=== PATIENT | female | born 1975 | race Caucasian/White ===

== ENCOUNTER 2022-03-11 04:27 | Inpatient (IN) ==
[2022-03-11] MEDS ORDERED: SODIUM CHLORIDE 0.9% 1,000 ML IV STA (04:41)
[2022-03-11 05:09] LABS: Basophils # 0.1 10*3/uL (0.0-0.2); Basophils % 0.5 % (0.0-0.8); Eosinophils # 0.4 10*3/uL (0.0-0.87); Eosinophils % 1.6 % (0.00-10.9); Hematocrit 48.4 VOL% (35.7-47.0); Hemoglobin 14.5 GM/DL (12.0-16.0); Immature Granulocytes % 1.4 %; Immature Granulocytes Absolute 0.34 #; Lymphocytes # 9.4 10*3/uL (1.4-4.0); Lymphocytes % 39.2 % (21.3-54.2); Mean Corpuscular Volume 90.3 FL (87-102); Mean Platelet Volume 11.4 FL (9.6-12.0); Monocytes # 1.3 10*3/uL (0.11-0.8); Monocytes % 5.2 % (1.7-12.7); Neutrophils % 52.1 % (38.7-73.9); Platelet Count 417 T/CUMM (130-400); Red Blood Count 5.36 MC/CUMM (3.8-5.5); Red Cell Distribution Width 13.2 % (9.3-17.3); White Blood Count 24.1 T/CUMM (4-12)
[2022-03-11 05:16] LABS: PT Patient Result 11.5 SECS (10.5-12.0)
[2022-03-11] MEDS ORDERED: SODIUM BICARBONATE 50 MEQ/50 ML VIAL IV STA (05:23)
[2022-03-11] MEDS ORDERED: SODIUM BICARBONATE 50 MEQ/50 ML VIAL IV ONE ×2 (05:23→13:07)
[2022-03-11 05:25] LABS: Arterial Base Excess iSTAT -9 MMOL/L (-2.5-2.5); Arterial Bicarbonate iSTAT 24.4 MMOL/L (20-26); Arterial O2 Saturation iSTAT 93 % (95-100); Arterial PCO2 iSTAT 93 MM HG (35-48); Arterial PO2 iSTAT 99 MM HG (80-95); Arterial Total CO2 iSTAT 27 MMO/L (23-27); Arterial pH iSTAT 7.029 (7.35-7.45)
[2022-03-11] MEDS ORDERED: HEPARIN 5,000 UNIT/1 ML VIAL ONE (05:26)
[2022-03-11] MEDS ORDERED: HEPARIN 5,000 UNIT/1 ML VIAL IV STA (05:26)
[2022-03-11 05:30] LABS: Eosinophils 5 % (0-10); Lymphocytes 23 % (20-55); Platelet Estimate Increased; Total Cells Counted 100
[2022-03-11 05:31] LABS: Albumin 3.3 G/DL (3.4-5.0); Bilirubin,Total 0.4 MG/DL (0.20-1.00); Calcium 9.5 MG/DL (8.5-10.1); Osmolality,Calculated 293.8 MOS/KG (273-304); Potassium 4.3 MMOL/L (3.5-5.1); Total Protein 6.8 G/DL (6.4-8.2)
[2022-03-11] MEDS ORDERED: ETOMIDATE 20 MG/10 ML VIAL IV ONE (05:48)
[2022-03-11] MEDS ORDERED: ROCURONIUM 100 MG/10 ML VIAL IV ONE (05:48)
[2022-03-11 05:51] LABS: Bilirubin,Urine Negative (Negative); Blood, Urine Negative (Negative); Glucose,Urine (UA) 250 mg/dL (Negative); Hyaline Casts,Urine 3 /LPF (0-3); Ketones,Urine Negative (Negative); Nitrite,Urine Negative (Negative); Protein,Urine Negative (Negative); Squamous Epithelial Cell,Urine Occasional /HPF (0-10); Urine Appearance Clear (Clear); Urine Color Yellow (Yellow); Urine Specific Gravity 1.015 (1.001-1.035)
[2022-03-11 05:52] LABS: Urine Urobilinogen 0.2 eU/dL (<2.0)
[2022-03-11 06:08] LABS: Barbiturates Screen,Urine Negative (Negative); Benzodiazepines Screen,Urine Negative (Negative); Cannabinoid Screen,Urine Negative (Negative); Opiate Screen,Urine Negative (Negative); Phencyclidine Screen,Urine Negative (Negative)
[2022-03-11] MEDS ORDERED: MIDAZOLAM 2 MG/2 ML VIAL ONE (06:19)
[2022-03-11] MEDS ORDERED: HYDROmorphone 1 MG/1 ML SYRINGE ONE (06:19)
[2022-03-11] MEDS ORDERED: TIROFIBAN 5,000 MCG/100 ML PREMIX IV ONE (06:23)
[2022-03-11] MEDS ORDERED: HEPARIN/NACL 0.9% 2 UNITS/ML 1,000 UNIT/500 ML BAG IV ONE (06:29)
[2022-03-11] MEDS ORDERED: TIROFIBAN 5,000 MCG/100 ML PREMIX IV SCH (06:29)
[2022-03-11] MEDS ORDERED: TICAGRELOR 90 MG TABLET PO STA (07:13)
[2022-03-11] MEDS ORDERED: PROMETHAZINE 25 MG/1 ML VIAL IM PRN (08:02)
[2022-03-11] MEDS ORDERED: ONDANSETRON 4 MG/2 ML VIAL IV PRN (08:02)
[2022-03-11] MEDS ORDERED: MAGNESIUM SULF RIDER 2 GM/50 ML PREMIX IV PRN (08:10)
[2022-03-11] MEDS ORDERED: MAGNESIUM SULF RIDER 4 GM/100 ML PREMIX IV PRN (08:10)
[2022-03-11 09:17] LABS: Basophils # 0.1 10*3/uL (0.0-0.2); Basophils % 0.3 % (0.0-0.8); Hematocrit 44.8 VOL% (35.7-47.0); Hemoglobin 13.7 GM/DL (12.0-16.0); Lymphocytes # 2.2 10*3/uL (1.4-4.0); Lymphocytes % 7.8 % (21.3-54.2); Mean Corpuscular HGB Conc 30.6 GM/DL (32-36); Mean Corpuscular Volume 90.3 FL (87-102); Mean Platelet Volume 10.7 FL (9.6-12.0); Monocytes # 1.9 10*3/uL (0.11-0.8); Monocytes % 6.8 % (1.7-12.7); Neutrophils % 83.5 % (38.7-73.9); Platelet Count 376 T/CUMM (130-400); Red Blood Count 4.96 MC/CUMM (3.8-5.5); Red Cell Distribution Width 13.3 % (9.3-17.3); White Blood Count 27.7 T/CUMM (4-12)
[2022-03-11 09:27] LABS: Albumin 2.7 G/DL (3.4-5.0); Bilirubin,Total 0.6 MG/DL (0.20-1.00); Calcium 7.1 MG/DL (8.5-10.1); Potassium 3.6 MMOL/L (3.5-5.1); Total Protein 6.4 G/DL (6.4-8.2)
[2022-03-11 09:30] LABS: Band Neutrophils 3 % (0-10); Lymphocytes 11 % (20-55); Macrocytosis Slight; Metamyelocytes 1 %; Platelet Estimate Normal; Total Cells Counted 100
[2022-03-11] MEDS: LACTATED RINGERS 1,000 ML IV SCH ×4 (09:31→22:46)
[2022-03-11] MEDS: TICAGRELOR 90 MG TABLET PO SCH ×2 (09:32→21:27)
[2022-03-11] MEDS: ASPIRIN EC 81 MG TABLET PO SCH (09:32)
[2022-03-11 09:35] LABS: Arterial Base Excess iSTAT -2 MMOL/L (-2.5-2.5); Arterial Bicarbonate iSTAT 26.8 MMOL/L (20-26); Arterial O2 Saturation iSTAT 94 % (95-100); Arterial PCO2 iSTAT 60 MM HG (35-48); Arterial PO2 iSTAT 81 MM HG (80-95); Arterial Total CO2 iSTAT 29 MMO/L (23-27); Arterial pH iSTAT 7.259 (7.35-7.45)
[2022-03-11 09:53] LABS: CKMB % 8.18 %
[2022-03-11 10:03] LABS: High Sensitive Troponin I* 59924.1 ng/L (0-54)
[2022-03-11] MEDS ORDERED: LACTATED RINGERS 1,000 ML IV ONE (10:17)
[2022-03-11] MEDS: MIDAZOLAM 100 MG in SODIUM CHLORIDE 0.9% 80 ML IV PRN ×2 (10:40→23:10)
[2022-03-11] MEDS: cefTRIAXone 1,000 MG in SODIUM CHLORIDE 0.9% 100 ML IV SCH (11:12)
[2022-03-11] MEDS ORDERED: LACTATED RINGERS 500 ML IV ONE ×2 (11:25→21:05)
[2022-03-11 11:35] LABS: Risk Ratio 4.42
[2022-03-11] MEDS: AZITHROMYCIN INJ 500 MG in SODIUM CHLORIDE 0.9% 250 ML IV SCH (11:43)
[2022-03-11] MEDS: INSULIN REGULAR 100 UNIT/ML SUBCUT SCH ×3 (11:43→23:40)
[2022-03-11 11:56] LABS: Arterial Base Excess iSTAT -1 MMOL/L (-2.5-2.5); Arterial Bicarbonate iSTAT 26.3 MMOL/L (20-26); Arterial O2 Saturation iSTAT 95 % (95-100); Arterial PCO2 iSTAT 55 MM HG (35-48); Arterial PO2 iSTAT 85 MM HG (80-95); Arterial Total CO2 iSTAT 28 MMO/L (23-27); Arterial pH iSTAT 7.285 (7.35-7.45)
[2022-03-11 12:05] LABS: CKMB % 9.35 %
[2022-03-11 12:07] LABS: High Sensitive Troponin I* 112833.8 ng/L (0-54)
[2022-03-11 14:19] LABS: Basophils % 0.2 % (0.0-0.8); Eosinophils % 0.1 % (0.00-10.9); Hematocrit 39.1 VOL% (35.7-47.0); Hemoglobin 12.5 GM/DL (12.0-16.0); Immature Granulocytes % 0.7 %; Immature Granulocytes Absolute 0.13 #; Lymphocytes % 10.2 % (21.3-54.2); Mean Corpuscular Volume 84.8 FL (87-102); Mean Platelet Volume 10.6 FL (9.6-12.0); Monocytes # 1.3 10*3/uL (0.11-0.8); Monocytes % 6.6 % (1.7-12.7); Neutrophils % 82.2 % (38.7-73.9); Platelet Count 307 T/CUMM (130-400); Red Blood Count 4.61 MC/CUMM (3.8-5.5); Red Cell Distribution Width 13.4 % (9.3-17.3); White Blood Count 19.2 T/CUMM (4-12)
[2022-03-11 14:37] LABS: Albumin 2.4 G/DL (3.4-5.0); Bilirubin,Total 0.6 MG/DL (0.20-1.00); Calcium 7.9 MG/DL (8.5-10.1); Osmolality,Calculated 289.8 MOS/KG (273-304); Potassium 4.5 MMOL/L (3.5-5.1); Total Protein 5.9 G/DL (6.4-8.2)
[2022-03-11 14:50] LABS: CKMB % 8.83 %
[2022-03-11 14:52] LABS: High Sensitive Troponin I* 57679.2 ng/L (0-54)
[2022-03-11] MEDS: PANTOPRAZOLE 40 MG VIAL IV SCH (15:17)
[2022-03-11 15:24] LABS: Arterial Base Excess iSTAT 1 MMOL/L (-2.5-2.5); Arterial Bicarbonate iSTAT 26.8 MMOL/L (20-26); Arterial O2 Saturation iSTAT 92 % (95-100); Arterial PCO2 iSTAT 48 MM HG (35-48); Arterial PO2 iSTAT 69 MM HG (80-95); Arterial Total CO2 iSTAT 28 MMO/L (23-27); Arterial pH iSTAT 7.354 (7.35-7.45)
[2022-03-11] MEDS: DEXMEDETOMIDINE 200 MCG in SODIUM CHLORIDE 0.9% 48 ML IV PRN ×2 (19:15→23:38)
[2022-03-11] MEDS: ALBUTEROL/IPRATROPIUM 3 ML NEB RESP TX SCH (19:40)
[2022-03-11] MEDS: ROSUVASTATIN 20 MG TABLET PO SCH (21:27)
[2022-03-11] MEDS ORDERED: NOREPINEPHRINE 4 MG/4 ML VIAL IV ONE (21:45)
[2022-03-11] MEDS: NOREPINEPHRINE 8 MG in SODIUM CHLORIDE 0.9% 242 ML IV PRN (21:58)
[2022-03-12] MEDS: ALBUTEROL/IPRATROPIUM 3 ML NEB RESP TX SCH ×4 (00:42→19:25)
[2022-03-12] MEDS: DEXMEDETOMIDINE 400 MCG in SODIUM CHLORIDE 0.9% 96 ML IV PRN ×4 (03:40→22:48)
[2022-03-12 04:15] LABS: Arterial Base Excess iSTAT 3 MMOL/L (-2.5-2.5); Arterial Bicarbonate iSTAT 28.3 MMOL/L (20-26); Arterial O2 Saturation iSTAT 99 % (95-100); Arterial PCO2 iSTAT 43 MM HG (35-48); Arterial PO2 iSTAT 157 MM HG (80-95); Arterial Total CO2 iSTAT 30 MMO/L (23-27); Arterial pH iSTAT 7.428 (7.35-7.45)
[2022-03-12] MEDS: LACTATED RINGERS 1,000 ML IV SCH ×4 (04:58→22:49)
[2022-03-12] MEDS: INSULIN REGULAR 100 UNIT/ML SUBCUT SCH ×3 (05:27→18:35)
[2022-03-12] MEDS: ACETAMINOPHEN 325 MG TABLET PO PRN (05:28)
[2022-03-12 06:14] LABS: Basophils # 0.1 10*3/uL (0.0-0.2); Basophils % 0.2 % (0.0-0.8); Eosinophils % 0.1 % (0.00-10.9); Hematocrit 40.2 VOL% (35.7-47.0); Hemoglobin 12.7 GM/DL (12.0-16.0); Immature Granulocytes % 0.5 %; Immature Granulocytes Absolute 0.11 #; Lymphocytes # 4.3 10*3/uL (1.4-4.0); Mean Corpuscular HGB Conc 31.6 GM/DL (32-36); Mean Corpuscular Volume 84.6 FL (87-102); Mean Platelet Volume 10.7 FL (9.6-12.0); Monocytes # 1.8 10*3/uL (0.11-0.8); Monocytes % 8.1 % (1.7-12.7); Neutrophils % 72.1 % (38.7-73.9); Platelet Count 364 T/CUMM (130-400); Red Blood Count 4.75 MC/CUMM (3.8-5.5); Red Cell Distribution Width 13.2 % (9.3-17.3); White Blood Count 22.6 T/CUMM (4-12)
[2022-03-12 06:38] LABS: Albumin 2.7 G/DL (3.4-5.0); Bilirubin,Total 0.8 MG/DL (0.20-1.00); Calcium 8.4 MG/DL (8.5-10.1); Osmolality,Calculated 288.1 MOS/KG (273-304); Potassium 3.8 MMOL/L (3.5-5.1); Total Protein 6.3 G/DL (6.4-8.2)
[2022-03-12] MEDS: POTASSIUM CHLORIDE 20 MEQ TABLET PO PRN (08:25)
[2022-03-12 08:39] LABS: Anisocytosis Slight; Lymphocytes 23 % (20-55); Platelet Estimate Normal; Total Cells Counted 100
[2022-03-12] MEDS: MIDAZOLAM 100 MG in SODIUM CHLORIDE 0.9% 80 ML IV PRN (09:00)
[2022-03-12] MEDS: NOREPINEPHRINE 8 MG in SODIUM CHLORIDE 0.9% 242 ML IV PRN (09:00)
[2022-03-12] MEDS: MULTIVITAMIN (CENTRUM) TABLET PO SCH (09:38)
[2022-03-12] MEDS: TICAGRELOR 90 MG TABLET PO SCH ×2 (09:38→20:55)
[2022-03-12] MEDS: ASPIRIN EC 81 MG TABLET PO SCH (09:38)
[2022-03-12] MEDS: PANTOPRAZOLE 40 MG VIAL IV SCH (09:39)
[2022-03-12] MEDS: ESTRADIOL 1 MG TABLET PO SCH (09:39)
[2022-03-12] MEDS: INSULIN GLARGINE 100 UNIT/ML SUBCUT SCH (10:03)
[2022-03-12] MEDS ORDERED: LACTATED RINGERS 500 ML IV ONE (10:45)
[2022-03-12] MEDS: cefTRIAXone 1,000 MG in SODIUM CHLORIDE 0.9% 100 ML IV SCH (11:34)
[2022-03-12] MEDS: AZITHROMYCIN INJ 500 MG in SODIUM CHLORIDE 0.9% 250 ML IV SCH (13:36)
[2022-03-12] MEDS: MEROPENEM 500 MG in SODIUM CHLORIDE 0.9% 100 ML IV SCH ×2 (13:36→18:35)
[2022-03-12 15:30] LABS: Amorphous Crystals,Urine Occasional /HPF (Few); Bacteria,Urine Occasional /HPF (Few); Bilirubin,Urine Negative (Negative); Blood, Urine Negative (Negative); Glucose,Urine (UA) Negative (Negative); Ketones,Urine Negative (Negative); Mucus,Urine Occasional /LPF (Occasional); Nitrite,Urine Negative (Negative); Protein,Urine 30 mg/dL (Negative); Squamous Epithelial Cell,Urine Occasional /HPF (0-10); Urine Appearance Slightly Cloudy (Clear); Urine Color Yellow (Yellow); Urine Urobilinogen 0.2 eU/dL (<2.0); Urine pH 8.5 (4.5-8.0)
[2022-03-12] MEDS: VANCOMYCIN INJ 1,500 MG in SODIUM CHLORIDE 0.9% 500 ML IV SCH (16:42)
[2022-03-12] MEDS: ROSUVASTATIN 20 MG TABLET PO SCH (20:55)
[2022-03-13] MEDS: ALBUTEROL/IPRATROPIUM 3 ML NEB RESP TX SCH ×4 (00:14→19:21)
[2022-03-13] MEDS: INSULIN REGULAR 100 UNIT/ML SUBCUT SCH ×4 (00:54→17:58)
[2022-03-13] MEDS: MEROPENEM 500 MG in SODIUM CHLORIDE 0.9% 100 ML IV SCH ×4 (00:55→18:15)
[2022-03-13] MEDS: VANCOMYCIN INJ 1,500 MG in SODIUM CHLORIDE 0.9% 500 ML IV SCH ×2 (01:28→13:59)
[2022-03-13] MEDS: NOREPINEPHRINE 8 MG in SODIUM CHLORIDE 0.9% 242 ML IV PRN (02:44)
[2022-03-13 04:04] LABS: ABG Base Excess 1.5 MMOL/L (-2.5-2.5); ABG HCO3 25.7 MMOL/L (20-26); ABG Oxygen Saturation 97.3 % (95-100); ABG PCO2 33.9 MM HG (35-48); ABG PH 7.469 (7.35-7.45); ABG PO2 98.6 MM HG (80-95); ABG TCO2 21.4 MMOL/L (23-27)
[2022-03-13 04:19] LABS: Basophils % 0.2 % (0.0-0.8); Eosinophils # 0.1 10*3/uL (0.0-0.87); Eosinophils % 0.7 % (0.00-10.9); Hematocrit 36.7 VOL% (35.7-47.0); Hemoglobin 11.7 GM/DL (12.0-16.0); Immature Granulocytes % 0.5 %; Immature Granulocytes Absolute 0.08 #; Lymphocytes # 4.1 10*3/uL (1.4-4.0); Lymphocytes % 23.8 % (21.3-54.2); Mean Corpuscular HGB Conc 31.9 GM/DL (32-36); Mean Corpuscular Volume 85.2 FL (87-102); Mean Platelet Volume 10.6 FL (9.6-12.0); Monocytes # 1.2 10*3/uL (0.11-0.8); Monocytes % 7.1 % (1.7-12.7); Neutrophils % 67.7 % (38.7-73.9); Platelet Count 252 T/CUMM (130-400); Red Blood Count 4.31 MC/CUMM (3.8-5.5); Red Cell Distribution Width 13.2 % (9.3-17.3); White Blood Count 17.1 T/CUMM (4-12)
[2022-03-13 04:38] LABS: Calcium 8.4 MG/DL (8.5-10.1); Osmolality,Calculated 281.4 MOS/KG (273-304); Phosphorous 2.2 MG/DL (2.5-4.9); Potassium 3.6 MMOL/L (3.5-5.1)
[2022-03-13 04:50] LABS: Albumin 2.4 G/DL (3.4-5.0); Bilirubin,Total 1.1 MG/DL (0.20-1.00); Osmolality,Calculated 283.3 MOS/KG (273-304); Potassium 4.1 MMOL/L (3.5-5.1); Total Protein 5.2 G/DL (6.4-8.2)
[2022-03-13] MEDS: DEXMEDETOMIDINE 400 MCG in SODIUM CHLORIDE 0.9% 96 ML IV PRN ×3 (04:50→17:32)
[2022-03-13] MEDS: LACTATED RINGERS 1,000 ML IV SCH ×4 (05:27→22:02)
[2022-03-13] MEDS: ACETAMINOPHEN 325 MG TABLET PO PRN (05:29)
[2022-03-13] MEDS: PANTOPRAZOLE 40 MG VIAL IV SCH (08:42)
[2022-03-13] MEDS: ASPIRIN EC 81 MG TABLET PO SCH (08:42)
[2022-03-13] MEDS: MULTIVITAMIN (CENTRUM) TABLET PO SCH (08:42)
[2022-03-13] MEDS: ESTRADIOL 1 MG TABLET PO SCH (08:42)
[2022-03-13] MEDS: TICAGRELOR 90 MG TABLET PO SCH ×2 (08:42→20:43)
[2022-03-13] MEDS: INSULIN GLARGINE 100 UNIT/ML SUBCUT SCH (08:43)
[2022-03-13] MEDS ORDERED: NOREPINEPHRINE 8 MG in SODIUM CHLORIDE 0.9% 242 ML IV PRN (09:34)
[2022-03-13] MEDS: MIDAZOLAM 100 MG in SODIUM CHLORIDE 0.9% 80 ML IV PRN (11:18)
[2022-03-13] MEDS: AZITHROMYCIN INJ 500 MG in SODIUM CHLORIDE 0.9% 250 ML IV SCH (12:19)
[2022-03-13] MEDS: ROSUVASTATIN 20 MG TABLET PO SCH (20:43)
[2022-03-14] MEDS: ALBUTEROL/IPRATROPIUM 3 ML NEB RESP TX SCH ×4 (00:18→20:15)
[2022-03-14] MEDS: NOREPINEPHRINE 8 MG in SODIUM CHLORIDE 0.9% 242 ML IV PRN (00:50)
[2022-03-14] MEDS: MEROPENEM 500 MG in SODIUM CHLORIDE 0.9% 100 ML IV SCH ×4 (00:53→19:21)
[2022-03-14] MEDS: INSULIN REGULAR 100 UNIT/ML SUBCUT SCH ×4 (00:58→19:20)
[2022-03-14] MEDS: VANCOMYCIN INJ 1,500 MG in SODIUM CHLORIDE 0.9% 500 ML IV SCH (03:00)
[2022-03-14 04:51] LABS: Arterial Base Excess iSTAT 0 MMOL/L (-2.5-2.5); Arterial Bicarbonate iSTAT 23.1 MMOL/L (20-26); Arterial O2 Saturation iSTAT 99 % (95-100); Arterial PCO2 iSTAT 31 MM HG (35-48); Arterial PO2 iSTAT 149 MM HG (80-95); Arterial Total CO2 iSTAT 24 MMO/L (23-27); Arterial pH iSTAT 7.488 (7.35-7.45)
[2022-03-14] MEDS: DEXMEDETOMIDINE 400 MCG in SODIUM CHLORIDE 0.9% 96 ML IV PRN ×5 (05:09→20:50)
[2022-03-14] MEDS: LACTATED RINGERS 1,000 ML IV SCH ×3 (06:21→16:28)
[2022-03-14 06:25] LABS: Basophils % 0.3 % (0.0-0.8); Eosinophils # 0.2 10*3/uL (0.0-0.87); Eosinophils % 1.4 % (0.00-10.9); Hematocrit 36.1 VOL% (35.7-47.0); Hemoglobin 11.1 GM/DL (12.0-16.0); Immature Granulocytes % 0.4 %; Immature Granulocytes Absolute 0.05 #; Lymphocytes # 2.9 10*3/uL (1.4-4.0); Lymphocytes % 24.9 % (21.3-54.2); Mean Corpuscular HGB Conc 30.7 GM/DL (32-36); Mean Corpuscular Volume 87.4 FL (87-102); Monocytes # 0.7 10*3/uL (0.11-0.8); Monocytes % 6.2 % (1.7-12.7); Neutrophils % 66.8 % (38.7-73.9); Platelet Count 217 T/CUMM (130-400); Red Blood Count 4.13 MC/CUMM (3.8-5.5); Red Cell Distribution Width 13.2 % (9.3-17.3); White Blood Count 11.7 T/CUMM (4-12)
[2022-03-14 07:21] LABS: Albumin 1.9 G/DL (3.4-5.0); Bilirubin,Total 1.1 MG/DL (0.20-1.00); Calcium 8.2 MG/DL (8.5-10.1); Total Protein 5.4 G/DL (6.4-8.2)
[2022-03-14 07:26] LABS: Osmolality,Calculated 282.3 MOS/KG (273-304); Potassium 3.9 MMOL/L (3.5-5.1)
[2022-03-14] MEDS: ASPIRIN CHEW 81 MG TABLET PO SCH (09:22)
[2022-03-14] MEDS: ESTRADIOL 1 MG TABLET PO SCH (09:22)
[2022-03-14] MEDS: MULTIVITAMIN (CENTRUM) TABLET PO SCH (09:23)
[2022-03-14] MEDS: PANTOPRAZOLE 40 MG VIAL IV SCH (09:25)
[2022-03-14] MEDS: INSULIN GLARGINE 100 UNIT/ML SUBCUT SCH (09:25)
[2022-03-14] MEDS: TICAGRELOR 90 MG TABLET PO SCH ×2 (09:26→21:19)
[2022-03-14] MEDS ORDERED: MAGNESIUM SULF RIDER 2 GM/50 ML PREMIX IV ONE (09:36)
[2022-03-14 09:52] LABS: Arterial Base Excess iSTAT -2 MMOL/L (-2.5-2.5); Arterial Bicarbonate iSTAT 22.8 MMOL/L (20-26); Arterial O2 Saturation iSTAT 96 % (95-100); Arterial PCO2 iSTAT 38 MM HG (35-48); Arterial PO2 iSTAT 84 MM HG (80-95); Arterial Total CO2 iSTAT 24 MMO/L (23-27); Arterial pH iSTAT 7.384 (7.35-7.45)
[2022-03-14] MEDS: MIDAZOLAM 100 MG in SODIUM CHLORIDE 0.9% 80 ML IV PRN (16:59)
[2022-03-14] MEDS: ROSUVASTATIN 20 MG TABLET PO SCH (21:19)
[2022-03-15] MEDS: INSULIN REGULAR 100 UNIT/ML SUBCUT SCH ×4 (00:17→17:00)
[2022-03-15] MEDS: MEROPENEM 500 MG in SODIUM CHLORIDE 0.9% 100 ML IV SCH ×4 (00:31→17:33)
[2022-03-15] MEDS: LACTATED RINGERS 1,000 ML IV SCH ×3 (01:22→06:55)
[2022-03-15] MEDS: ALBUTEROL/IPRATROPIUM 3 ML NEB RESP TX SCH ×4 (01:53→19:00)
[2022-03-15 03:09] LABS: Arterial Base Excess iSTAT 0 MMOL/L (-2.5-2.5); Arterial O2 Saturation iSTAT 96 % (95-100); Arterial PCO2 iSTAT 36 MM HG (35-48); Arterial PO2 iSTAT 81 MM HG (80-95); Arterial Total CO2 iSTAT 25 MMO/L (23-27); Arterial pH iSTAT 7.428 (7.35-7.45)
[2022-03-15] MEDS: MIDAZOLAM 100 MG in SODIUM CHLORIDE 0.9% 80 ML IV PRN ×2 (03:50→15:20)
[2022-03-15 04:03] LABS: Basophils % 0.2 % (0.0-0.8); Eosinophils # 0.2 10*3/uL (0.0-0.87); Eosinophils % 2.1 % (0.00-10.9); Hematocrit 34.8 VOL% (35.7-47.0); Hemoglobin 10.9 GM/DL (12.0-16.0); Immature Granulocytes % 0.4 %; Immature Granulocytes Absolute 0.05 #; Lymphocytes # 2.5 10*3/uL (1.4-4.0); Lymphocytes % 21.9 % (21.3-54.2); Mean Corpuscular HGB Conc 31.3 GM/DL (32-36); Mean Corpuscular Volume 85.9 FL (87-102); Mean Platelet Volume 10.1 FL (9.6-12.0); Monocytes # 0.9 10*3/uL (0.11-0.8); Monocytes % 7.4 % (1.7-12.7); Platelet Count 242 T/CUMM (130-400); Red Blood Count 4.05 MC/CUMM (3.8-5.5); Red Cell Distribution Width 12.9 % (9.3-17.3); White Blood Count 11.5 T/CUMM (4-12)
[2022-03-15 04:30] LABS: Bilirubin,Total 0.9 MG/DL (0.20-1.00); Calcium 8.8 MG/DL (8.5-10.1); Osmolality,Calculated 282.3 MOS/KG (273-304); Potassium 3.6 MMOL/L (3.5-5.1); Total Protein 5.8 G/DL (6.4-8.2)
[2022-03-15] MEDS: DEXMEDETOMIDINE 400 MCG in SODIUM CHLORIDE 0.9% 96 ML IV PRN ×3 (04:30→16:49)
[2022-03-15] MEDS: PANTOPRAZOLE 40 MG VIAL IV SCH (08:00)
[2022-03-15] MEDS: DAPAGLIFLOZIN 10 MG TABLET PO SCH (08:04)
[2022-03-15] MEDS: ESTRADIOL 1 MG TABLET PO SCH (08:04)
[2022-03-15] MEDS: TICAGRELOR 90 MG TABLET PO SCH ×2 (08:04→20:36)
[2022-03-15] MEDS: MULTIVITAMIN (CENTRUM) TABLET PO SCH (08:04)
[2022-03-15] MEDS: ASPIRIN CHEW 81 MG TABLET PO SCH (08:04)
[2022-03-15] MEDS: INSULIN GLARGINE 100 UNIT/ML SUBCUT SCH (08:05)
[2022-03-15] MEDS: methylPREDNISolone SOD SUC 40 MG/1 ML VIAL IV SCH ×2 (09:00→16:55)
[2022-03-15] MEDS: POTASSIUM CHLORIDE 20 MEQ TABLET PO PRN ×2 (09:01→11:03)
[2022-03-15 09:50] VITALS: BP 135/112
[2022-03-15] MEDS: FUROSEMIDE 40 MG/4 ML VIAL IV SCH (12:27)
[2022-03-15] MEDS: SPIRONOLACTONE 25 MG TABLET PO SCH (12:29)
[2022-03-15] MEDS: ASCORBIC ACID 500 MG TABLET PO SCH ×2 (12:29→20:35)
[2022-03-15] MEDS: NOREPINEPHRINE 8 MG in SODIUM CHLORIDE 0.9% 242 ML IV PRN (19:34)
[2022-03-15] MEDS: ROSUVASTATIN 20 MG TABLET PO SCH (20:36)
[2022-03-15] MEDS: fentaNYL INJ 1,250 MCG in SODIUM CHLORIDE 0.9% 225 ML IV PRN (21:40)
[2022-03-16] MEDS: MEROPENEM 500 MG in SODIUM CHLORIDE 0.9% 100 ML IV SCH ×4 (00:16→18:20)
[2022-03-16] MEDS: ALBUTEROL/IPRATROPIUM 3 ML NEB RESP TX SCH ×4 (00:20→19:20)
[2022-03-16] MEDS: INSULIN REGULAR 100 UNIT/ML SUBCUT SCH ×4 (00:22→17:09)
[2022-03-16] MEDS: methylPREDNISolone SOD SUC 40 MG/1 ML VIAL IV SCH ×3 (02:00→17:08)
[2022-03-16] MEDS: MIDAZOLAM 100 MG in SODIUM CHLORIDE 0.9% 80 ML IV PRN (03:11)
[2022-03-16 05:36] LABS: Basophils % 0.1 % (0.0-0.8); Hematocrit 36.5 VOL% (35.7-47.0); Hemoglobin 11.3 GM/DL (12.0-16.0); Immature Granulocytes % 0.6 %; Immature Granulocytes Absolute 0.05 #; Lymphocytes # 0.9 10*3/uL (1.4-4.0); Lymphocytes % 9.6 % (21.3-54.2); Mean Corpuscular Volume 86.7 FL (87-102); Monocytes # 0.2 10*3/uL (0.11-0.8); Neutrophils % 87.7 % (38.7-73.9); Platelet Count 306 T/CUMM (130-400); Red Blood Count 4.21 MC/CUMM (3.8-5.5); Red Cell Distribution Width 13.1 % (9.3-17.3); White Blood Count 8.8 T/CUMM (4-12)
[2022-03-16 05:58] LABS: Albumin 2.4 G/DL (3.4-5.0); Bilirubin,Total 0.8 MG/DL (0.20-1.00); Calcium 8.9 MG/DL (8.5-10.1); Osmolality,Calculated 293.7 MOS/KG (273-304); Potassium 4.2 MMOL/L (3.5-5.1); Total Protein 6.1 G/DL (6.4-8.2)
[2022-03-16] MEDS: TICAGRELOR 90 MG TABLET PO SCH ×2 (08:00→20:12)
[2022-03-16] MEDS: MULTIVITAMIN (CENTRUM) TABLET PO SCH (08:00)
[2022-03-16] MEDS: ASPIRIN CHEW 81 MG TABLET PO SCH (08:00)
[2022-03-16] MEDS: FUROSEMIDE 40 MG/4 ML VIAL IV SCH (08:00)
[2022-03-16] MEDS: ESTRADIOL 1 MG TABLET PO SCH (08:00)
[2022-03-16] MEDS: DAPAGLIFLOZIN 10 MG TABLET PO SCH (08:00)
[2022-03-16] MEDS: SPIRONOLACTONE 25 MG TABLET PO SCH (08:00)
[2022-03-16] MEDS: ASCORBIC ACID 500 MG TABLET PO SCH ×2 (08:01→20:13)
[2022-03-16] MEDS: INSULIN GLARGINE 100 UNIT/ML SUBCUT SCH (08:01)
[2022-03-16] MEDS: PANTOPRAZOLE 40 MG VIAL IV SCH (08:02)
[2022-03-16] MEDS: fentaNYL INJ 1,250 MCG in SODIUM CHLORIDE 0.9% 225 ML IV PRN ×2 (09:57→22:07)
[2022-03-16] MEDS: PHENYLEPHRINE DRIP 40 MG/250 ML PREMIX IV PRN ×2 (10:24→21:48)
[2022-03-16] MEDS: DEXMEDETOMIDINE 400 MCG in SODIUM CHLORIDE 0.9% 96 ML IV PRN ×2 (13:04→21:01)
[2022-03-16] MEDS: ACETAMINOPHEN 325 MG TABLET PO PRN ×2 (15:57→20:12)
[2022-03-16] MEDS: ROSUVASTATIN 20 MG TABLET PO SCH (20:13)
[2022-03-17] MEDS: ACETAMINOPHEN 325 MG TABLET PO PRN ×2 (00:15→04:23)
[2022-03-17] MEDS: ALBUTEROL/IPRATROPIUM 3 ML NEB RESP TX SCH ×3 (00:28→13:41)
[2022-03-17] MEDS: MEROPENEM 500 MG in SODIUM CHLORIDE 0.9% 100 ML IV SCH ×3 (00:48→12:28)
[2022-03-17] MEDS: INSULIN REGULAR 100 UNIT/ML SUBCUT SCH ×3 (00:48→11:27)
[2022-03-17] MEDS: methylPREDNISolone SOD SUC 40 MG/1 ML VIAL IV SCH ×2 (02:45→09:34)
[2022-03-17 04:51] LABS: Basophils % 0.2 % (0.0-0.8); Hematocrit 38.2 VOL% (35.7-47.0); Hemoglobin 11.7 GM/DL (12.0-16.0); Immature Granulocytes % 0.5 %; Immature Granulocytes Absolute 0.07 #; Lymphocytes % 7.3 % (21.3-54.2); Mean Corpuscular HGB Conc 30.6 GM/DL (32-36); Mean Platelet Volume 10.8 FL (9.6-12.0); Monocytes # 0.5 10*3/uL (0.11-0.8); Monocytes % 3.9 % (1.7-12.7); Neutrophils % 88.1 % (38.7-73.9); Platelet Count 403 T/CUMM (130-400); Red Blood Count 4.34 MC/CUMM (3.8-5.5); Red Cell Distribution Width 13.1 % (9.3-17.3)
[2022-03-17 05:03] LABS: Phosphorous 2.8 MG/DL (2.5-4.9)
[2022-03-17 05:12] LABS: ABG Base Excess 4.2 MMOL/L (-2.5-2.5); ABG HCO3 28.1 MMOL/L (20-26); ABG Oxygen Saturation 91.6 % (95-100); ABG PH 7.408 (7.35-7.45); ABG PO2 66.3 MM HG (80-95); ABG TCO2 26.4 MMOL/L (23-27)
[2022-03-17 05:18] LABS: Albumin 2.6 G/DL (3.4-5.0); Bilirubin,Total 0.7 MG/DL (0.20-1.00); Calcium 9.1 MG/DL (8.5-10.1); Osmolality,Calculated 307.1 MOS/KG (273-304); Potassium 4.4 MMOL/L (3.5-5.1); Total Protein 6.8 G/DL (6.4-8.2)
[2022-03-17 05:44] LABS: Platelet Estimate Increased
[2022-03-17] MEDS ORDERED: MIDAZOLAM 2 MG/2 ML VIAL IV ONE (09:12)
[2022-03-17] MEDS ORDERED: MIDAZOLAM 2 MG/2 ML VIAL ONE (09:12)
[2022-03-17] MEDS: TICAGRELOR 90 MG TABLET PO SCH (09:33)
[2022-03-17] MEDS: ASCORBIC ACID 500 MG TABLET PO SCH (09:34)
[2022-03-17] MEDS: SPIRONOLACTONE 25 MG TABLET PO SCH (09:34)
[2022-03-17] MEDS: ASPIRIN CHEW 81 MG TABLET PO SCH (09:34)
[2022-03-17] MEDS: MULTIVITAMIN (CENTRUM) TABLET PO SCH (09:34)
[2022-03-17] MEDS: ESTRADIOL 1 MG TABLET PO SCH (09:34)
[2022-03-17] MEDS: DAPAGLIFLOZIN 10 MG TABLET PO SCH (09:34)
[2022-03-17] MEDS: PANTOPRAZOLE 40 MG VIAL IV SCH (09:34)
[2022-03-17] MEDS: INSULIN GLARGINE 100 UNIT/ML SUBCUT SCH (09:37)
[2022-03-17 10:01] LABS: Arterial Base Excess iSTAT 6 MMOL/L (-2.5-2.5); Arterial Bicarbonate iSTAT 31.1 MMOL/L (20-26); Arterial O2 Saturation iSTAT 93 % (95-100); Arterial PCO2 iSTAT 46 MM HG (35-48); Arterial PO2 iSTAT 66 MM HG (80-95); Arterial Total CO2 iSTAT 32 MMO/L (23-27)
[2022-03-17] MEDS ORDERED: EPINEPHrine 1 MG/10 ML SYRINGE IV ONE (16:33)
[2022-03-17] MEDS ORDERED: AMIODARONE 150 MG/3 ML VIAL IV ONE (16:36)
[2022-03-17] MEDS ORDERED: MIDAZOLAM 10 MG/2 ML VIAL ONE (16:38)
[2022-03-17] MEDS ORDERED: ETOMIDATE 20 MG/10 ML VIAL IV ONE (16:39)
[2022-03-17] MEDS ORDERED: ROCURONIUM 100 MG/10 ML VIAL IV ONE (16:40)
[2022-03-17] MEDS ORDERED: MAGNESIUM SULFATE 1 GM/2 ML VIAL IV ONE (16:42)
[2022-03-17] MEDS ORDERED: LIDOCAINE 100 MG/5 ML SYRINGE IV ONE (16:45)
[2022-03-17] MEDS ORDERED: SODIUM BICARBONATE 50 MEQ/50 ML SYRINGE IV ONE (16:46)
[2022-03-17] MEDS ORDERED: CALCIUM CHLORIDE 1,000 MG/10 ML SYRINGE IV ONE (16:47)
[2022-03-17] MEDS ORDERED: ATROPINE 1 MG/10 ML SYRINGE IV ONE (16:54)
[2022-03-17] MEDS ORDERED: PROCAINAMIDE 1000 MG/2 ML IV ONE ×2 (16:59→17:00)
[2022-03-17] MEDS ORDERED: HEPARIN 5,000 UNIT/1 ML VIAL ONE ×2 (17:03→17:04)
== END 2022-03-17 17:10 | disposition expired | DRG 246 ==
LOC: EDBD → EDUNIT# → N.ED 04:27 → N.CC 08:05 → SUATTDRO 08:23 → N.CC 08:23
PROVIDERS: ADMIT Internal Medicine Cardiovascular Disease; ATTEND Internal Medicine
PROC: CLCCHCL (ICD-10-PCS; 2022-03-11 06:15)